=== PATIENT | male | born 1960 | race Caucasian/White ===

== ENCOUNTER 2017-09-27 13:45 | Emergency (ER) | payer SELFPAY ==
[~2017-09-27] VITALS: Ht 180.3 cm; Wt 76.2 kg
[2017-09-27 18:02] VITALS: BP 96/68
== END 2017-09-27 18:03 | disposition home or self-care (01) ==
LOC: ER 13:47
DX: S60.512A Abrasion of left hand, initial encounter (principal); S60.511A Abrasion of right hand, initial encounter; F15.10 Other stimulant abuse, uncomplicated; F20.0 Paranoid schizophrenia; Z59.0 Homelessness; X58.XXXA Exposure to other specified factors, initial encounter; Y93.89 Activity, other specified; Y92.89 Other specified places as the place of occurrence of the external cause; Y99.8 Other external cause status
CPT/HCPCS: A4217; A4606; A6402; Z7610